=== PATIENT | female | born 1995 | race Caucasian/White ===

== ENCOUNTER 2022-07-17 12:26 | Emergency (ER) | payer BC ==
[2022-07-17 12:30] VITALS: TEMP 97.4
[2022-07-17] MEDS ORDERED: ONDANSETRON 4 MG/2 ML VIAL IVP STA (12:47)
[2022-07-17] MEDS ORDERED: KETOROLAC 15 MG/ML 1 ML VIAL IVP STA (12:47)
[2022-07-17] MEDS ORDERED: SODIUM CHLORIDE 0.9% 1,000 ML IV STA (12:47)
[2022-07-17] MEDS ORDERED: PANTOPRAZOLE 40 MG/10 ML VIAL IVP STA (12:47)
--- NOTE | 2022-07-17 12:53 | ED ---
General Adult HPI - General Chief complaint: Abdominal Pain Stated complaint: NVD Time Seen by Provider: 07/17/22 12:31 Source: patient, RN notes reviewed, old records reviewed Mode of arrival: ambulatory Limitations: no limitations - History of Present Illness Initial comments: Patient is a 27-year-old female who presents with Department complaining of abdominal pain. She is also had nausea that is associated with nonbilious nonbloody emesis 3. Also has had multiple episodes of diarrhea that has been nonbloody. Symptoms all started yesterday. Patient is emotional. She states she does not know what is causing it. States she feels miserable and that her stomach feels really bad after she throws up. States she has not thrown up in quite some time. Denies any abdominal discomfort otherwise. Denies chest pain or shortness of breath. Denies fevers or chills. Denies any sick contacts. States she is currently on her period but denies any vaginal discharge otherwise. Denies any urinary complaints. Does have some crampy suprapubic ab dominal pain as well as upper epigastric pain that she describes is more achy. Patient does have a history of PCO last and is on metformin. States this symptoms sometimes are caused by medications but this just seems to be more pronounced this time which is why she presents emergency department for evaluation. Denies any known sick contacts. Presents for further evaluation at this time. - Related Data Home Medications Medication Instructions Recorded Confirmed Ethinyl Estradiol/Drospirenone 1 tab PO HS 07/17/22 07/17/22 [Abena 28 Tablet] Metformin Er 750mg 750 mg PO TID 07/17/22 07/17/22 Phentermine HCl [Adipex-P] 37.5 mg PO DAILY 07/17/22 07/17/22 Previous Rx's Medication Instructions Recorded Dicyclomine [Bentyl] 10 mg PO TID PRN 7 Days #21 capsule 07/17/22 Ondansetron Odt [Zofran Odt] 4 mg PO Q8HR PRN 2 Days #6 tab 07/17/22 Allergies Allergy/AdvReac Type Severity Reaction Status Date / Time No Known Allergies Allergy Verified 07/17/22 16:37 Review of Systems ROS Statement: Those systems with pertinent positive or pertinent negative responses have been documented in the HPI. Review of Systems: CONST: Denies fever EYES: Denies blurry vision ENT: Denies nasal congestion C/V: Denies Chest pain RESP: Denies shortness of breath GI: Endorses abdominal pain : Denies dysuria SKIN: Denies rash. MSK: Denies joint pain. NEURO: Denies headache ROS Other: All systems not noted in ROS Statement are negative. Past Medical History Additional Past Medical History / Comment(s): PCOS History of Any Multi-Drug Resistant Organisms: None Reported Past Surgical History: Tonsillectomy Past Psychological History: Anxiety Smoking Status: Never smoker Past Alcohol Use History: None Reported Past Drug Use History: Marijuana General Exam - General Exam Comments Initial Comments: General: Appears in no acute distress. Patient is upset, however overall does not appear in much acute distress otherwise. HEAD: Normal with no signs of head trauma. EYES: EOMI ENT: Hearing grossly intact, normal oropharynx. RESPIRATORY: Clear breath sounds bilaterally. No wheezes, rales, or rhonchi. C/V: Tachycardic with a regular rhythm. S1 and S2 auscultated, no edema, peripheral pulses 2+ and intact throughout ABD: Soft, nondistended. Minimally tender to palpation in the epigastric region. No guarding. No rebound tenderness. No peritoneal signs. No CVA tenderness to percussion. Overall exam is unremarkable. EXT: Normal range of motion, no obvious deformity SKIN: No rashes or lesions observed on exposed skin. NEURO: Alert and oriented 4. Limitations: no limitations Course Vital Signs 07/17/22 07/17/22 07/17/22 12:27 14:21 15:50 Temperature 97.4 F L Pulse Rate 111 H 95 90 Respiratory 20 16 20 Rate Blood Pressure 137/95 127/77 121/79 O2 Sat by Pulse 98 97 99 Oximetry Medical Decision Making - Medical Decision Making Was pt. sent in by a medical professional or institution (, PA, [employer], urgent care, hospital, or intermediate...) When possible be specific @ -No Did you speak to anyone other than the patient for history (EMS, parent, family, police, friend...)? What history was obtained from this source @ -No Did you review nursing and triage notes (agree or disagree)? Why? @ -I reviewed and agree with nursing and triage notes Were old charts reviewed (outside hosp., previous admission, EMS record, old EKG, old radiological studies, urgent care reports/EKG's, intermediate records)? Report findings @ -No old charts were reviewed Differential Diagnosis (chest pain, altered mental status, abdominal pain women, abdominal pain men, vaginal bleeding, weakness, fever, dyspnea, syncope, headache, dizziness, GI bleed, back pain, seizure, CVA, palpatations, mental health, musculoskeletal)? @ -Differential Abdominal Pain Women: Appendicitis, Cholecystitis, diverticulosis, ischemic bowel, pancreatitis, hepatitis, UTI, gastroenteritis, AAA, incarcerated hernia, bowel obstruction, constipation, inflammatory bowel, hepatitis, peptic ulcer disease, splenic infarction, perforated viscus, vulvitis, ovarian torsion, PID, kidney stone, placenta abruption, this is not meant to be an all-inclusive list EKG interpreted by me (3pts min.). @ -None done X-rays interpreted by me (1pt min.). @ -KUB x-ray reveals no obvious intra-abdominal process. CT interpreted by me (1pt min.). @ -CT abdomen and pelvis revealed mild splenomegaly, however no other obvious acute intra-abdominal process to explain her symptoms. U/S interpreted by me (1pt. min.). @ -Gallbladder ultrasound revealed no evidence of acute cholecystitis. Sonographic Nieves sign positive sonographic nieves sign and radiology recommend a HIDA scan. What testing was considered but not performed or refused? (CT, X-rays, U/S, labs)? Why? @ -None What meds were considered but not given or refused? Why? @ -None Did you discuss the management of the patient with other professionals (professionals i.e. , PA, [employer], lab, RT, psych nurse, dialysis social worker, judicial administrative assistant, teacher, chief lifestyle officer, case briefer)? Give summary @ -No Was smoking cessation discussed for >3mins.? @ -No Was critical care preformed (if so, how long)? @ -No Were there social determinants of health that impacted care today? How? (Homelessness, low income, unemployed, alcoholism, drug addiction, transportation, low edu. Level, literacy, decrease access to med. care, long term, rehab)? @ -No Was there de-escalation of care discussed even if they declined (Discuss DNR or withdrawal of care, Hospice)? DNR status @ -No What co-morbidities impacted this encounter? (DM, HTN, Smoking, COPD, CAD, C ancer, CVA, ARF, Chemo, Hep., AIDS, mental health diagnosis, sleep apnea, morbid obesity)? @ -PCOS Was patient admitted / discharged? Hospital course, mention meds given and route, prescriptions, significant lab abnormalities, going to OR and other pertinent info. @ -Based on the patient's presentation and physical exam, she presents with a bdominal pain, nausea, vomiting, diarrhea. Abdominal exam is relatively unremarkable. Vital signs are within acceptable limits. We will obtain abdominal laboratory studies as well as ultrasound of the gallbladder and KUB x- ray. We will symptomatically treat the patient with IV Toradol, Zofran, P rotonix, 1 L fluid bolus. She was in agreement this plan. Patient's laboratory studies were delayed but were remarkable for mild leukocytosis of 12. Remainder the labs are unremarkable including lactic acid of 1.4. Patient's urine is bloody the patient is currently on her menstrual cy mariia. She is not . Remainder the workup unremarkable. Gallbladder ultrasound and x-ray were unremarkable, other than recommending HIDA scan done non-emergently. I did discuss results with the patient. She is feeling somewhat improved but I did offer CT imaging which he accepted. CT abdomen and pelvis revealed no obvious acute intra-abdominal process to explain her current symptoms. We did discuss her workup. She is feeling improved at this time. Unknown etiology for her symptoms. She'll be discharged home with strict follow-up instructions and return precautions. She was in agreement this plan. I will provide the patient with a prescription for ODT Victor Hugo Jara. I instructed the patient to follow up with their PCP in the next 1-3 days. I provided contact information for follow up with gastroenterology. I explained that the patient should return to the emergency department if they experience any worsening symptoms. Strict return precautions were discussed with the patient. The patient expressed understanding of these instructions. I answered all questions that the patient had. The patient was discharged home in good condition with their prescriptions and follow up information. Undiagnosed new problem with uncertain prognosis? @ -No Drug Therapy requiring intensive monitoring for toxicity (Heparin, Nitro, Insulin, Cardizem)? @ -No Were any procedures done? @ -No Diagnosis/symptom? @ -Abdominal pain of unknown etiology, nausea and vomiting, diarrhea Acute, or Chronic, or Acute on Chronic? @ -Acute Uncomplicated (without systemic symptoms) or Complicated (systemic symptoms)? @ -Uncomplicated Side effects of treatment? @ -none Exacerbation, Progression, or Severe Exacerbation] @ -no Poses a threat to life or bodily function? @ -no - Lab Data Result diagrams: 07/17/22 13:05 07/17/22 13:05 Lab Results 07/17/22 07/17/22 07/17/22 Range/Units 13:05 13:05 13:05 WBC 12.0 H (3.8-10.6) k/uL RBC 5.10 (3.80-5.40) m/uL Hgb 15.0 (11.4-16.0) gm/dL Hct 43.0 (34.0-46.0) % MCV 84.4 (80.0-100.0) fL MCH 29.5 (25.0-35.0) pg MCHC 34.9 (31.0-37.0) g/dL RDW 12.6 (11.5-15.5) % Plt Count 273 (150-450) k/uL MPV 7.9 Neutrophils % 70 % Lymphocytes % 21 % Monocytes % 4 % Eosinophils % 4 % Basophils % 0 % Neutrophils # 8.3 H (1.3-7.7) k/uL Lymphocytes # 2.5 (1.0-4.8) k/uL Monocytes # 0.4 (0-1.0) k/uL Eosinophils # 0.5 (0-0.7) k/uL Basophils # 0.0 (0-0.2) k/uL PT 10.0 (9.0-12.0) sec INR 0.9 (<1.2) APTT 22.7 (22.0-30.0) sec Sodium 135 L (137-145) mmol/L Potassium 4.1 (3.5-5.1) mmol/L Chloride 107 (98-107) mmol/L Carbon Dioxide 18 L (22-30) mmol/L Anion Gap 10 mmol/L BUN 13 (7-17) mg/dL Creatinine 0.55 (0.52-1.04) mg/dL Est GFR (CKD-EPI)AfAm >90 (>60 ml/min/1.73 sqM) Est GFR (CKD-EPI)NonAf >90 (>60 ml/min/1.73 sqM) Glucose 95 (74-99) mg/dL Plasma Lactic Acid Pedro (0.7-2.0) mmol/L Calcium 8.9 (8.4-10.2) mg/dL Total Bilirubin 0.6 (0.2-1.3) mg/dL AST 32 (14-36) U/L ALT 43 H (4-34) U/L Alkaline Phosphatase 60 (38-126) U/L Total Protein 7.3 (6.3-8.2) g/dL Albumin 4.1 (3.5-5.0) g/dL Amylase 53 (30-110) U/L Lipase 118 (23-300) U/L HCG, Qual Not Detected Urine Appearance (Clear) Urine RBC (0-5) /hpf Urine WBC (0-5) /hpf Ur Squamous Epith Cells (0-4) /hpf Urine Mucus (None) /hpf Influenza Type A (PCR) (Not Detectd) Influenza Type B (PCR) (Not Detectd) RSV (PCR) (Not Detectd) SARS-CoV-2 (PCR) (Not Detectd) 07/17/22 07/17/22 07/17/22 Range/Units 13:05 13:08 13:08 WBC (3.8-10.6) k/uL RBC (3.80-5.40) m/uL Hgb (11.4-16.0) gm/dL Hct (34.0-46.0) % MCV (80.0-100.0) fL MCH (25.0-35.0) pg MCHC (31.0-37.0) g/dL RDW (11.5-15.5) % Plt Count (150-450) k/uL MPV Neutrophils % % Lymphocytes % % Monocytes % % Eosinophils % % Basophils % % Neutrophils # (1.3-7.7) k/uL Lymphocytes # (1.0-4.8) k/uL Monocytes # (0-1.0) k/uL Eosinophils # (0-0.7) k/uL Basophils # (0-0.2) k/uL PT (9.0-12.0) sec INR (<1.2) APTT (22.0-30.0) sec Sodium (137-145) mmol/L Potassium (3.5-5.1) mmol/L Chloride (98-107) mmol/L Carbon Dioxide (22-30) mmol/L Anion Gap mmol/L BUN (7-17) mg/dL Creatinine (0.52-1.04) mg/dL Est GFR (CKD-EPI)AfAm (>60 ml/min/1.73 sqM) Est GFR (CKD-EPI)NonAf (>60 ml/min/1.73 sqM) Glucose (74-99) mg/dL Plasma Lactic Acid Pedro 1.4 (0.7-2.0) mmol/L Calcium (8.4-10.2) mg/dL Total Bilirubin (0.2-1.3) mg/dL AST (14-36) U/L ALT (4-34) U/L Alkaline Phosphatase (38-126) U/L Total Protein (6.3-8.2) g/dL Albumin (3.5-5.0) g/dL Amylase (30-110) U/L Lipase (23-300) U/L HCG, Qual Urine Appearance Bloody H (Clear) Urine RBC >182 H (0-5) /hpf Urine WBC 79 H (0-5) /hpf Ur Squamous Epith Cells 9 H (0-4) /hpf Urine Mucus Many H (None) /hpf Influenza Type A (PCR) Not Detected (Not Detectd) Influenza Type B (PCR) Not Detected (Not Detectd) RSV (PCR) Not Detected (Not Detectd) SARS-CoV-2 (PCR) Not Detected (Not Detectd) Disposition Clinical Impression: Abdominal pain of unknown cause, Nausea & vomiting, Diarrhea Disposition: HOME SELF-CARE Condition: Good Instructions (If sedation given, give patient instructions): Abdominal Pain (ED) Prescriptions: Dicyclomine [Bentyl] 10 mg PO TID PRN 7 Days #21 capsule PRN Reason: Pain Ondansetron Odt [Zofran Odt] 4 mg PO Q8HR PRN 2 Days #6 tab PRN Reason: Nausea Is patient prescribed a controlled substance at d/c from ED?: No Referrals: None,Stated [Primary Care Provider] - 1-2 days Dana Gordon MD [STAFF PHYSICIAN] - 1-2 days Time of Disposition: 16:19
[2022-07-17 13:32] LABS: ALT 43 U/L (4-34); AST 32 U/L (14-36); African American GFR (CKD) >90 (>60 ml/min/1.73 sqM); Albumin 4.1 g/dL (3.5-5.0); Alkaline Phosphatase 60 U/L (38-126); Amylase 53 U/L (30-110); Anion Gap 10 mmol/L; Blood Urea Nitrogen 13 mg/dL (7-17); Calcium 8.9 mg/dL (8.4-10.2); Carbon Dioxide 18 mmol/L (22-30); Chloride 107 mmol/L (98-107); Glucose 95 mg/dL (74-99); Lipase 118 U/L (23-300); Non-African American GFR(CKD) >90 (>60 ml/min/1.73 sqM); Potassium 4.1 mmol/L (3.5-5.1); Sodium 135 mmol/L (137-145); Total Bilirubin 0.6 mg/dL (0.2-1.3); Total Protein 7.3 g/dL (6.3-8.2)
[2022-07-17 13:33] LABS: INR 0.9 (<1.2); Partial Thromboplastin Time 22.7 sec (22.0-30.0)
[2022-07-17 13:35] LABS: HCG,Qualitative Serum Not Detected
[2022-07-17 13:37] LABS: Basophils % (A) 0 %; Eosinophils # (A) 0.5 k/uL (0-0.7); Eosinophils % (A) 4 %; Lymphocytes # (A) 2.5 k/uL (1.0-4.8); Lymphocytes % (A) 21 %; MCH 29.5 pg (25.0-35.0); MCHC 34.9 g/dL (31.0-37.0); MCV 84.4 fL (80.0-100.0); Mean Platelet Volume 7.9; Monocytes # (A) 0.4 k/uL (0-1.0); Monocytes % (A) 4 %; Neutrophils # (A) 8.3 k/uL (1.3-7.7); Neutrophils % (A) 70 %; Platelet Count 273 k/uL (150-450); RDW 12.6 % (11.5-15.5)
--- NOTE | 2022-07-17 14:03 | XR ---
EXAMINATION TYPE: XR [facility] DATE OF EXAM: 07/17/2022 COMPARISON: NONE HISTORY: Abdominal pain TECHNIQUE: Upright view of the abdomen was obtained with 2 radiographs. FINDINGS: Small bowel demonstrates no evidence for dilatation or air fluid levels. Gas and fecal material is seen in non-distended colon. No convincing evidence for pneumoperitoneum. No unusual calcifications. The lung bases are clear. The osseous structures are intact. IMPRESSION: Overall nonobstructive bowel gas pattern.
[2022-07-17 14:39] LABS: Mucus,Urine Many /hpf; RBC,Urine >182 /hpf (0-5); Squamous Epithelial Cell,Urine 9 /hpf (0-4); WBC,Urine 79 /hpf (0-5)
[2022-07-17 14:40] LABS: Appearance,Urine Bloody (Clear)
--- NOTE | 2022-07-17 15:14 | US ---
EXAMINATION TYPE: US gallbladder DATE OF EXAM: 07/17/2022 COMPARISON: NONE CLINICAL INDICATION: Female, 27 years old with history of n/v, epigastric pain; TECHNIQUE: Multiple sonographic images of the right upper quadrant are obtained. FINDINGS: EXAM MEASUREMENTS: Liver Length: 15.2 Gallbladder Wall: 0.2m CBD: 0.4m Right Kidney: 11.4 x 4.3 x 3.9 GOVERNMENT EMPLOYEE NOTES: Pancreas: Obscured by bowel gas Liver: difficult to penetrate Gallbladder: No stones seen Evidence for sonographic Neives's sign: Yes CBD: wnl Right Kidney: No hydronephrosis or masses seen The pancreas is nonvisualized due to overlying bowel gas. The liver is diffusely hyperechoic and diff icult to penetrate without gross evidence of focal lesion. No cholelithiasis, wall thickening, perich olecystic fluid identified. Per corncob pipe supervisor, positive sonographic Nieves sign. Common bile duct withi n normal limits. The right kidney unremarkable without evidence of hydronephrosis, nephrolithiasis, o r contour deforming solid mass. IMPRESSION: 1. No ultrasound evidence for acute cholecystitis however reported positive sonographic Nieves's sig n. Clinical correlation is recommended. If there is continued clinical concern, consider nuclear medi cine HIDA scan. 2. Hepatic steatosis.
[2022-07-17] MEDS ORDERED: DICYCLOMINE 20 MG TAB PO STA (15:23)
[2022-07-17 15:51] VITALS: BP 121/79; PULSE 90; RESP 20
--- NOTE | 2022-07-17 15:55 | CT ---
EXAMINATION TYPE: CT abdomen pelvis w con CT DLP: 2990.4 mGycm, Automated exposure control for dose reduction was used. DATE OF EXAM: 07/17/2022 3:46 PM COMPARISON: KUB radiograph 07/17/2022 gallbladder ultrasound 07/17/2022. CLINICAL INDICATION:Female, 27 years old with history of abdominal pain, crampy, n/v/d; Stomach pain, vomiting TECHNIQUE: Standard CT of the abdomen and pelvis following the administration of 100 cc of Isovue 3 00 IV contrast material. Coronal and sagittal reformats were performed. FINDINGS: LOWER CHEST: Unremarkable ABDOMEN LIVER: Diffusely hypoattenuating parenchyma. GALLBLADDER AND BILE DUCTS: Unremarkable. PANCREAS: Unremarkable. SPLEEN: Mildly enlarged measuring 14.6 cm in greatest dimension. ADRENAL GLANDS: Unremarkable. KIDNEYS AND URETERS: No evidence of hydronephrosis or renal calculus. The kidneys enhance symmetrical ly without suspicious focal lesion. Contrast is demonstrated within both collecting systems on the de layed phase. PELVIS BLADDER: Incompletely distended but grossly unremarkable. REPRODUCTIVE: Unremarkable. ABDOMEN & PELVIS STOMACH AND BOWEL: Stomach and duodenum are unremarkable. No focal wall thickening or surrounding inf lammatory changes. The appendix is within normal limits. No evidence of bowel obstruction. PERITONEUM: No evidence of pneumoperitoneum or free fluid. VASCULATURE: No evidence of aortic aneurysm. MUSCULOSKELETAL: No acute osseous abnormalities LYMPH NODES: No gross evidence for lymphadenopathy. SOFT TISSUE/ABDOMINAL WALL: Small fat filled umbilical hernia. IMPRESSION: 1. No acute abdominal/pelvic process. 2. Mild splenomegaly.
== END 2022-07-17 16:39 | disposition home or self-care (01) ==
LOC: EC 12:26
DX: K76.0 Fatty (change of) liver, not elsewhere classified (principal); F41.9 Anxiety disorder, unspecified; F12.90 Cannabis use, unspecified, uncomplicated; Z79.84 Long term (current) use of oral hypoglycemic drugs; Z20.822 Contact with and (suspected) exposure to COVID-19
CPT/HCPCS: 36415; 80053; 82150; 83605; 83690; 85025; 85610; 85730; 81001; 84703; 87086; 87636; 74018; 76705; 74177; 99284; 96374; 96375 ×2; 96361; J2405; J1885; C9113; Q9967

== ENCOUNTER 2022-07-23 11:50 | Emergency (ER) | payer BC ==
[2022-07-23] MEDS ORDERED: ERYTHROMYCIN 5 MG/GM OPHTH OINT 1 GM TUBE LEFT EYE STA (12:07)
[2022-07-23] MEDS ORDERED: ARTIFICIAL TEARS-HYPROMELLOSE DROPS 15 ML BTL LEFT EYE PRN (12:08)
--- NOTE | 2022-07-23 12:13 | ED ---
General Adult HPI - General Chief complaint: Neuro Symptoms/Deficit Stated complaint: L side face numbness Time Seen by Provider: 07/23/22 11:57 Source: patient, family Mode of arrival: ambulatory Limitations: no limitations - History of Present Illness Initial comments: Dictation was produced using [employer] dictation software. please excuse any gram matical, word or spelling errors. Chief Complaint: 27-year-old female presents with left facial weakness History of Present Illness: Patient 27-year-old female she has past medical hist ory of polycystic ovarian syndrome. Patient presents with 2 days of left-sided facial weakness patient was sent starting yesterday. Today she woke up and felt worse. Patient states that when she smiles and says she cannot move her left lower face. She also notices upper face is also started become weak. Patient was seen here in emergency department 6 days ago for abdominal pain. Patient denies any headache. Denies any numbness and paresthesias to extremities. The ROS documented in this emergency department record has been reviewed and confirmed by me. Those systems with pertinent positive or negative responses have been documented in the HPI. All other systems are other negative and/or noncontributory. - Related Data Home Medications Medication Instructions Recorded Confirmed Ethinyl Estradiol/Drospirenone 1 tab PO HS 07/17/22 07/23/22 [Abena 28 Tablet] Metformin Er 750mg 750 mg PO TID 07/17/22 07/23/22 Previous Rx's Medication Instructions Recorded Artificial Tears-Hypromellose 1 drops LEFT EYE TID #10 ml 07/23/22 [Artificial Tear Drops] Erythromycin Ophth Oint [Romycin 1 applic LEFT EYE DAILY #1 gm 07/23/22 Ophth Oint] predniSONE [Deltasone] 60 mg PO DAILY 7 Days #24 tab 07/23/22 valACYclovir HCL [Valtrex] 1,000 mg PO DAILY 7 Days #7 tablet 07/23/22 Allergies Allergy/AdvReac Type Severity Reaction Status Date / Time No Known Allergies Allergy Verified 07/23/22 12:52 Review of Systems ROS Statement: Those systems with pertinent positive or pertinent negative responses have been documented in the HPI. ROS Other: All systems not noted in ROS Statement are negative. Past Medical History Additional Past Medical History / Comment(s): PCOS History of Any Multi-Drug Resistant Organisms: None Reported Past Surgical History: Tonsillectomy Past Psychological History: Anxiety Smoking Status: Never smoker Past Alcohol Use History: None Reported Past Drug Use History: Marijuana General Exam - General Exam Comments Initial Comments: PHYSICAL EXAM: General Impression: Alert and oriented x3, not in acute distress HEENT: Normocephalic atraumatic, extra-ocular movements intact, pupils equal and reactive to light bilaterally, mucous membranes moist. Cardiovascular: Heart regular rate and rhythm Chest: Able to complete full sentences, no retractions, no tachypnea Abdomen: abdomen soft, non-tender, non-distended, no organomegaly Musculoskeletal: Pulses present and equal in all extremities, no peripheral edema Motor: no focal deficits noted Neurological: Facial nerve palsy. No extremity weakness or sensory deficit. Weakness to the left lower face. Weakness to left periorbital muscles Skin: Intact with no visualized rashes Psych: Normal affect and mood Limitations: no limitations Course Vital Signs 07/23/22 11:51 Temperature 98.1 F Pulse Rate 108 H Respiratory 20 Rate Blood Pressure 144/89 O2 Sat by Pulse 98 Oximetry Medical Decision Making - Medical Decision Making Was pt. sent in by a medical professional or institution (, PA, RESEARCH ASSISTANT, urgent care, hospital, or correction...) When possible be specific @ -No Did you speak to anyone other than the patient for history (EMS, parent, family, police, friend...)? What history was obtained from this source @ -No Did you review nursing and triage notes (agree or disagree)? Why? @ -I reviewed and agree with nursing and triage notes Were old charts reviewed (outside hosp., previous admission, EMS record, old EKG, old radiological studies, urgent care reports/EKG's, correction records)? Report findings @ -No old charts were reviewed Differential Diagnosis (chest pain, altered mental status, abdominal pain women, abdominal pain men, vaginal bleeding, musculoskeletal, weakness, fever, dyspnea, syncope, headache, dizziness, GI bleed, back pain, seizure, CVA, palpatations, mental health)? @ - Differential CVA: Ischemic stroke, hemorrhagic stroke, brain tumor, atypical migraine, Wernicke's encephalopathy, seizure, multiple sclerosis, meningitis, encephalitis, hypoglycemia, Guillain-Matt, electrolytes disturbance, myasthenia gravis.... This is not meant to be an all-inclusive list EKG interpreted by me (3pts min.). @ -None done X-rays interpreted by me (1pt min.). @ -None done CT interpreted by me (1pt min.). @ -None done U/S interpreted by me (1pt. min.). @ -None done What testing was considered but not performed or refused? (CT, X-rays, U/S, labs)? Why? @ -None What meds were considered but not given or refused? Why? @ -None Did you discuss the management of the patient with other professionals (professionals i.e. Dr., PA, RESEARCH ASSISTANT, lab, RT, psych nurse, sexual assault social worker, cable former, teacher, inshore undersea warfare officer, case planner)? Give summary @ -No Was smoking cessation discussed for >3mins.? @ -No Was critical care preformed (if so, how long)? @ -No Were there social determinants of health that impacted care today? How? (Homelessness, low income, unemployed, alcoholism, drug addiction, transportation, low edu. Level, literacy, decrease access to med. care, long-term, rehab)? @ -No Was there de-escalation of care discussed even if they declined (Discuss DNR or withdrawal of care, Hospice)? DNR status @ -No What co-morbidities impacted this encounter? (DM, HTN, Smoking, COPD, CAD, Cancer, CVA, ARF, Chemo, Hep., AIDS, mental health diagnosis, sleep apnea, morbid obesity)? @ -None Was patient admitted / discharged? Hospital course, mention meds given and route, prescriptions, significant lab abnormalities, going to OR and other pertinent info. @ -27-year-old female with clinical presentation consistent with Jay palsy 2 days. No obvious cause. Patient counseled on eye care. Given prescription for antivirals and steroids. Patient discharged with instruction to follow up with primary care doctor. Undiagnosed new problem with uncertain prognosis? @ -No Drug Therapy requiring intensive monitoring for toxicity (Heparin, Nitro, Insulin, Cardizem)? @ -No Were any procedures done? @ -No Diagnosis/symptom? Acute, or Chronic, or Acute on Chronic? Uncomplicated (without systemic symptoms) or Complicated (systemic symptoms)? @ -Appearing. Unconjugated Jay palsy Side effects of treatment? @ -No Exacerbation, Progression, or Severe Exacerbation? @ -No Poses a threat to life or bodily function? How? (Chest pain, [place], [place], pneumonia, PE, COPD, DKA, ARF, appy, cholecystitis, CVA, Diverticulitis, Homicidal, Suicidal, threat to staff... and all critical care pts) @ -No - Lab Data Lab Results 07/23/22 Range/Units 12:25 Urine HCG, Qual Not Detected (Not Detectd) Disposition Clinical Impression: Jay palsy Disposition: HOME SELF-CARE Condition: Good Instructions (If sedation given, give patient instructions): Jay Palsy (ED) Additional Instructions: Artificial tears every hour while patient is awake Ophthalmic ointment at night Eye should be taped shut at night Protective glasses or goggles Prescriptions: Artificial Tears-Hypromellose [Artificial Tear Drops] 1 drops LEFT EYE TID #10 ml predniSONE [Deltasone] 60 mg PO DAILY 7 Days #24 tab Erythromycin Ophth Oint [Romycin Ophth Oint] 1 applic LEFT EYE DAILY #1 gm valACYclovir HCL [Valtrex] 1,000 mg PO DAILY 7 Days #7 tablet Is patient prescribed a controlled substance at d/c from ED?: No Referrals: Faby Pimentel DO [Primary Care Provider] - 1-2 days Time of Disposition: 13:09
[2022-07-23 13:41] VITALS: BP 142/72; PULSE 98; RESP 17; TEMP 97.9
== END 2022-07-23 13:41 | disposition home or self-care (01) ==
LOC: EC 11:50
DX: G51.0 Bell's palsy (principal); F41.9 Anxiety disorder, unspecified; F12.90 Cannabis use, unspecified, uncomplicated
CPT/HCPCS: 81025; 99284

== ENCOUNTER 2023-01-06 11:53 | Emergency (ER) | payer BC ==
--- NOTE | 2023-01-06 13:11 | ED ---
Female Urogenital HPI - General Chief complaint: Vaginal Bleeding Stated complaint: Vaginal Bleeding Time Seen by Provider: 01/06/23 12:15 Source: patient Mode of arrival: ambulatory Limitations: no limitations - History of Present Illness Initial comments: 27-year-old female presents to the emergency department with heavy vaginal bleeding. States that she has a history of PCOS. She is suppose to be on control. She stopped taking the control this month as she does not like the way it makes her feel. States that she has more heavy, painful menstrual cycles when on it. Patient is day 2 of her menstrual cycle and has had significant heavy bleeding. Reports to passing a very large clot earlier this morning. She has been going through 2 pads an hour. She called her TECHNICAL RECRUITER, Dr. Falcon who recommended that she come to the emergency room. She denies any lightheadedness or nausea. No fevers. No concern for sexual transmitted infec tions. She denies . She has never been . No urinary or bowel complaints. No other alleviating, precipitating or modifying factors - Related Data Home Medications Medication Instructions Recorded Confirmed No Known Home Medications 01/06/23 01/06/23 Allergies Allergy/AdvReac Type Severity Reaction Status Date / Time No Known Allergies Allergy Verified 01/06/23 13:28 Review of Systems ROS Statement: Those systems with pertinent positive or pertinent negative responses have been documented in the HPI. ROS Other: All systems not noted in ROS Statement are negative. Past Medical History Additional Past Medical History / Comment(s): PCOS History of Any Multi-Drug Resistant Organisms: None Reported Past Surgical History: Tonsillectomy Past Psychological History: Anxiety Smoking Status: Never smoker Past Alcohol Use History: Rare Past Drug Use History: Marijuana General Exam Limitations: no limitations General appearance: alert, in no apparent distress Head exam: Present: atraumatic, normocephalic, normal inspection Eye exam: Present: normal appearance, PERRL, EOMI. Absent: scleral icterus, conjunctival injection, periorbital swelling ENT exam: Present: normal exam, mucous membranes moist Neck exam: Present: normal inspection. Absent: tenderness, meningismus, lymphad enopathy Respiratory exam: Present: normal lung sounds bilaterally. Absent: respiratory distress, wheezes, rales, rhonchi, stridor Cardiovascular Exam: Present: regular rate, normal rhythm, normal heart sounds. Absent: systolic murmur, diastolic murmur, rubs, gallop, clicks GI/Abdominal exam: Present: soft, normal bowel sounds. Absent: distended, tenderness, guarding, rebound, rigid Extremities exam: Present: normal inspection, full ROM, normal capillary refill. Absent: tenderness, pedal edema, joint swelling, calf tenderness Back exam: Present: normal inspection Neurological exam: Present: alert, oriented X3, CN II-XII intact Psychiatric exam: Present: normal affect, normal mood Skin exam: Present: warm, dry, intact, normal color. Absent: rash Course Vital Signs 01/06/23 01/06/23 12:10 16:29 Temperature 98.2 F 98.9 F Pulse Rate 77 70 Respiratory 18 16 Rate Blood Pressure 147/96 145/73 O2 Sat by Pulse 97 98 Oximetry Medical Decision Making - Medical Decision Making Was pt. sent in by a medical professional or institution (NATASHA Marcano, SPORTS PHYSICAL THERAPIST, urgent care, hospital, or jail...) When possible be specific @ -Patient was sent in by her OB Did you speak to anyone other than the patient for history (EMS, parent, family, police, friend...)? What history was obtained from this source @ -No Did you review nursing and triage notes (agree or disagree)? Why? @ -I reviewed and agree with nursing and triage notes Were old charts reviewed (outside hosp., previous admission, EMS record, old EKG, old radiological studies, urgent care reports/EKG's, jail records)? Report findings @ -No old charts were reviewed Differential Diagnosis (chest pain, altered mental status, abdominal pain women, abdominal pain men, vaginal bleeding, weakness, fever, dyspnea, syncope, headache, dizziness, GI bleed, back pain, seizure, CVA, palpatations, mental health, musculoskeletal)? @ -Differential Vaginal Bleeding: Spontaneous , threatened , molar , ectopic , bloody show, incompetent cervix, abruptioplacenta, placenta previa, uterine rupt ure, dysfunctional uterine bleeding, hemorrhage, uterine fibroids, this is not meant to be an all-inclusive list. EKG interpreted by me (3pts min.). @ -Not done X-rays interpreted by me (1pt min.). @ -None done CT interpreted by me (1pt min.). @ -None done U/S interpreted by me (1pt. min.). @ -Yes and demonstrates some vaginal bleeding What testing was considered but not performed or refused? (CT, X-rays, U/S, labs)? Why? @ -None What meds were considered but not given or refused? Why? @ -None Did you discuss the management of the patient with other professionals (professionals i.e. Dr., PA, SPORTS PHYSICAL THERAPIST, lab, RT, psych nurse, forensic social worker, antenna rigger, teacher, vice squad police officer, home health care case manager)? Give summary @ -No Was smoking cessation discussed for >3mins.? @ -No Was critical care preformed (if so, how long)? @ -No Were there social determinants of health that impacted care today? How? (Homelessness, low income, unemployed, alcoholism, drug addiction, transportation, low edu. Level, literacy, decrease access to med. care, care home, r ehab)? @ -No Was there de-escalation of care discussed even if they declined (Discuss DNR or withdrawal of care, Hospice)? DNR status @ -No What co-morbidities impacted this encounter? (DM, HTN, Smoking, COPD, CAD, Cancer, CVA, ARF, Chemo, Hep., AIDS, mental health diagnosis, sleep apnea, morbid obesity)? @ -PCOS Was patient admitted / discharged? Hospital course, mention meds given and route, prescriptions, significant lab abnormalities, going to OR and other pertinent info. @ -Discharged. Upon arrival patient placed into room 22. Thorough history and physical exam was performed. IV is established and laboratory studies were conducted. Hemoglobin stable. Blood pressure is stable. Ultrasound is performed. Did speak with the radiologist in regards to the study. Patient is not and therefore area in the lower uterine segment is likely blood products. Results are discussed with the patient. Did recommend that she start her control up again due to the heavy menstrual cycle. I did offer pelvic examination however patient refused. Bleeding is slowed. Patient remained hemodynamic stable. Patient will be discharged home and instructed to follow up for repeat ultrasound through her TECHNICAL RECRUITER office. Return for any new or worsenin g symptoms. Patient was agreeable discharged in stable condition Undiagnosed new problem with uncertain prognosis? @ -No Drug Therapy requiring intensive monitoring for toxicity (Heparin, Nitro, Insulin, Cardizem)? @ -No Were any procedures done? @ -No Diagnosis/symptom? @ -Acute dysmenorrhea, history of PCO S Acute, or Chronic, or Acute on Chronic? @ -Acute Uncomplicated (without systemic symptoms) or Complicated (systemic symptoms)? @ -Complicated Side effects of treatment? @ -No Exacerbation, Progression, or Severe Exacerbation? @ -No Poses a threat to life or bodily function? How? (Chest pain, [place], [place], pneumonia, PE, COPD, DKA, ARF, appy, cholecystitis, CVA, Diverticulitis, Homicidal, Suicidal, threat to staff... and all critical care pts) @ -No - Lab Data Result diagrams: 01/06/23 13:15 01/06/23 13:15 Lab Results 01/06/23 01/06/23 01/06/23 Range/Units 13:15 13:15 13:15 WBC 8.3 (3.8-10.6) k/uL RBC 4.71 (3.80-5.40) m/uL Hgb 13.6 (11.4-16.0) gm/dL Hct 40.8 (34.0-46.0) % MCV 86.7 (80.0-100.0) fL MCH 29.0 (25.0-35.0) pg MCHC 33.4 (31.0-37.0) g/dL RDW 13.2 (11.5-15.5) % Plt Count 243 (150-450) k/uL MPV 7.9 Neutrophils % 56 % Lymphocytes % 35 % Monocytes % 5 % Eosinophils % 2 % Basophils % 0 % Neutrophils # 4.7 (1.3-7.7) k/uL Lymphocytes # 2.9 (1.0-4.8) k/uL Monocytes # 0.4 (0-1.0) k/uL Eosinophils # 0.1 (0-0.7) k/uL Basophils # 0.0 (0-0.2) k/uL Sodium 138 (137-145) mmol/L Potassium 4.3 (3.5-5.1) mmol/L Chloride 105 (98-107) mmol/L Carbon Dioxide 23 (22-30) mmol/L Anion Gap 10 mmol/L BUN 7 (7-17) mg/dL Creatinine 0.56 (0.52-1.04) mg/dL Est GFR (CKD-EPI)AfAm >90 (>60 ml/min/1.73 sqM) Est GFR (CKD-EPI)NonAf >90 (>60 ml/min/1.73 sqM) Glucose 81 (74-99) mg/dL Calcium 9.1 (8.4-10.2) mg/dL Total Bilirubin 0.5 (0.2-1.3) mg/dL AST 36 (14-36) U/L ALT 35 H (4-34) U/L Alkaline Phosphatase 54 (38-126) U/L Total Protein 6.6 (6.3-8.2) g/dL Albumin 3.8 (3.5-5.0) g/dL Urine Color Red Urine Appearance Cloudy H (Clear) Urine pH 7.0 (5.0-8.0) Ur Specific [place] 1.019 (1.001-1.035) Urine Protein 1+ H (Negative) Urine Glucose (UA) Negative (Negative) Urine Ketones Negative (Negative) Urine Blood Large H (Negative) Urine Nitrite Negative (Negative) Urine Bilirubin Negative (Negative) Urine Urobilinogen <2.0 (<2.0) mg/dL Ur Leukocyte Esterase Trace H (Negative) Urine RBC >182 H (0-5) /hpf Urine WBC 90 H (0-5) /hpf Urine WBC Clumps Few H (None) /hpf Ur Squamous Epith Cells 9 H (0-4) /hpf Amorphous Sediment Rare H (None) /hpf Urine Mucus Rare H (None) /hpf Urine HCG, Qual (Not Detectd) 01/06/23 Range/Units 13:15 WBC (3.8-10.6) k/uL RBC (3.80-5.40) m/uL Hgb (11.4-16.0) gm/dL Hct (34.0-46.0) % MCV (80.0-100.0) fL MCH (25.0-35.0) pg MCHC (31.0-37.0) g/dL RDW (11.5-15.5) % Plt Count (150-450) k/uL MPV Neutrophils % % Lymphocytes % % Monocytes % % Eosinophils % % Basophils % % Neutrophils # (1.3-7.7) k/uL Lymphocytes # (1.0-4.8) k/uL Monocytes # (0-1.0) k/uL Eosinophils # (0-0.7) k/uL Basophils # (0-0.2) k/uL Sodium (137-145) mmol/L Potassium (3.5-5.1) mmol/L Chloride (98-107) mmol/L Carbon Dioxide (22-30) mmol/L Anion Gap mmol/L BUN (7-17) mg/dL Creatinine (0.52-1.04) mg/dL Est GFR (CKD-EPI)AfAm (>60 ml/min/1.73 sqM) Est GFR (CKD-EPI)NonAf (>60 ml/min/1.73 sqM) Glucose (74-99) mg/dL Calcium (8.4-10.2) mg/dL Total Bilirubin (0.2-1.3) mg/dL AST (14-36) U/L ALT (4-34) U/L Alkaline Phosphatase (38-126) U/L Total Protein (6.3-8.2) g/dL Albumin (3.5-5.0) g/dL Urine Color Urine Appearance (Clear) Urine pH (5.0-8.0) Ur Specific [place] (1.001-1.035) Urine Protein (Negative) Urine Glucose (UA) (Negative) Urine Ketones (Negative) Urine Blood (Negative) Urine Nitrite (Negative) Urine Bilirubin (Negative) Urine Urobilinogen (<2.0) mg/dL Ur Leukocyte Esterase (Negative) Urine RBC (0-5) /hpf Urine WBC (0-5) /hpf Urine WBC Clumps (None) /hpf Ur Squamous Epith Cells (0-4) /hpf Amorphous Sediment (None) /hpf Urine Mucus (None) /hpf Urine HCG, Qual Not Detected (Not Detectd) Disposition Clinical Impression: Abnormal vaginal bleeding Disposition: HOME SELF-CARE Condition: Stable Instructions (If sedation given, give patient instructions): Dysmenorrhea (ED) Additional Instructions: Please follow-up with your TECHNICAL RECRUITER. I recommend a repeat ultrasound in 4 weeks. Continue taking your control and return for any new or worsening symptoms Is patient prescribed a controlled substance at d/c from ED?: No Referrals: Faby Pimentel DO [Primary Care Provider] - 1-2 days Kellee Falcon DO [REFERRING] - 1-2 days Time of Disposition: 15:55
[2023-01-06 13:20] LABS: Basophils % (A) 0 %; Eosinophils # (A) 0.1 k/uL (0-0.7); Eosinophils % (A) 2 %; HCT 40.8 % (34.0-46.0); HGB 13.6 gm/dL (11.4-16.0); Lymphocytes # (A) 2.9 k/uL (1.0-4.8); Lymphocytes % (A) 35 %; MCHC 33.4 g/dL (31.0-37.0); MCV 86.7 fL (80.0-100.0); Mean Platelet Volume 7.9; Monocytes # (A) 0.4 k/uL (0-1.0); Monocytes % (A) 5 %; Neutrophils # (A) 4.7 k/uL (1.3-7.7); Neutrophils % (A) 56 %; Platelet Count 243 k/uL (150-450); RBC 4.71 m/uL (3.80-5.40); RDW 13.2 % (11.5-15.5); WBC 8.3 k/uL (3.8-10.6)
[2023-01-06 13:30] LABS: ALT 35 U/L (4-34); AST 36 U/L (14-36); African American GFR (CKD) >90 (>60 ml/min/1.73 sqM); Albumin 3.8 g/dL (3.5-5.0); Alkaline Phosphatase 54 U/L (38-126); Anion Gap 10 mmol/L; Blood Urea Nitrogen 7 mg/dL (7-17); Calcium 9.1 mg/dL (8.4-10.2); Carbon Dioxide 23 mmol/L (22-30); Chloride 105 mmol/L (98-107); Glucose 81 mg/dL (74-99); Non-African American GFR(CKD) >90 (>60 ml/min/1.73 sqM); Potassium 4.3 mmol/L (3.5-5.1); Sodium 138 mmol/L (137-145); Total Bilirubin 0.5 mg/dL (0.2-1.3); Total Protein 6.6 g/dL (6.3-8.2)
[2023-01-06 13:45] LABS: Amorphous Sediment,Urine Rare /hpf; Appearance,Urine Cloudy (Clear); Bilirubin,Urine Negative (Negative); Blood,Urine Large (Negative); Color,Urine Red; Glucose,Urine (UA) Negative (Negative); Ketones,Urine Negative (Negative); Leukocyte Esterase,Urine Trace (Negative); Mucus,Urine Rare /hpf; Nitrite,Urine Negative (Negative); Protein,Urine 1+ (Negative); RBC,Urine >182 /hpf (0-5); Specific Gravity,Urine 1.019 (1.001-1.035); Squamous Epithelial Cell,Urine 9 /hpf (0-4); Urobilinogen,Urine <2.0 mg/dL (<2.0); WBC,Urine 90 /hpf (0-5)
--- NOTE | 2023-01-06 14:46 | US ---
EXAMINATION TYPE: US pelvis complete transvag DATE OF EXAM: 01/06/2023 COMPARISON: 07/17/2022 CLINICAL INDICATION: Female, 27 years old with history of pelvic pain, heavy bleeding with clots; On 3rd day of cycle, very heavy bleeding with large clots TECHNIQUE: Transvaginal (TV). Transvaginal sonographic images were medically necessary to better as sess the following anatomy: Endometrium Date of LMP: 01/02/2023 EXAM MEASUREMENTS: Uterus: 7.0x3.4x3.0 cm Endometrial Stripe: 0.4 cm Right Ovary: 3.5x2.4x3.8 cm Left Ovary: 3.4x2.7x3.7 cm 1. Uterus: Anteverted wnl 2. Endometrium: measures wnl, small 0.6cm hypoechoic area near lower uterine segment appears to invo lve both the endometrium and myometrium 3. Right Ovary: string of curtis sign, bulky appearance (pt. diagnosed with PCOS) 4. Left Ovary: string of curtis sign, bulky appearance (pt. diagnosed with PCOS) Spectral, color and waveform doppler imaging shows good arterial and venous flow within the ovaries ; there is no evidence for ovarian torsion. 5. Bilateral Adnexa: Obscured by overlying bowel gas 6. Posterior cul-de-sac: trace fluid IMPRESSION: 1. Small 6 mm hypoechoic area junction of the endometrium and uterine myometrium of the lower uterine segment. This could represent a small cyst or fluid collection. Correlate clinically. Further evalua tion with MRI could be obtained. Recommend additional correlation. 2. Findings are suggestive of polycystic ovary disease bilaterally.
[2023-01-06 16:31] VITALS: BP 145/73; PULSE 70; RESP 16; TEMP 98.9
== END 2023-01-06 16:34 | disposition home or self-care (01) ==
LOC: EC 11:53
DX: N93.9 Abnormal uterine and vaginal bleeding, unspecified (principal); F12.90 Cannabis use, unspecified, uncomplicated; Z86.59 Personal history of other mental and behavioral disorders
CPT/HCPCS: 36415; 76830; 80053; 81001; 81025; 85025; 93975; 99284

== ENCOUNTER 2023-08-25 13:56 | Emergency (ER) | payer BC ==
--- NOTE | 2023-08-25 14:07 | ED ---
Fall HPI - General Chief Complaint: Fall Stated Complaint: Fall-L leg injury Time Seen by Provider: 08/25/23 14:04 Source: patient, RN notes reviewed Mode of arrival: ambulatory Limitations: no limitations - History of Present Illness Initial Comments: This is a 28-year-old female who presents to the emergency department for a fall. Patient states that she tripped and fell on concrete, and has since had pain to the bilateral knees, left femur, and right wrist. Denies hitting her head or any loss of consciousness. She is still able to ambulate. MD Complaint: fall - Related Data Previous Rx's Medication Instructions Recorded Naproxen Sodium 550 mg PO BID PRN #30 tablet 08/25/23 methocarbamoL [Robaxin-750] 1,500 mg PO TID PRN #30 tab 08/25/23 Allergies Allergy/AdvReac Type Severity Reaction Status Date / Time No Known Allergies Allergy Verified 08/25/23 14:14 Review of Systems ROS Statement: Those systems with pertinent positive or pertinent negative responses have been documented in the HPI. ROS Other: All systems not noted in ROS Statement are negative. Past Medical History Additional Past Medical History / Comment(s): PCOS History of Any Multi-Drug Resistant Organisms: None Reported Past Surgical History: Tonsillectomy Past Psychological History: Anxiety Smoking Status: Never smoker Past Alcohol Use History: Rare Past Drug Use History: Marijuana General Exam Limitations: no limitations General appearance: alert, in no apparent distress Head exam: Present: atraumatic, normocephalic, normal inspection Respiratory exam: Present: normal lung sounds bilaterally. Absent: respiratory distress, wheezes, rales, rhonchi, stridor Cardiovascular Exam: Present: regular rate, normal rhythm, normal heart sounds. Absent: systolic murmur, diastolic murmur, rubs, gallop, clicks Extremities exam: Present: other (No deformities, swelling, or ecchymosis to the bilateral knees and femurs. Minor tenderness to the bilateral patella and posterior aspect of the left femur. Minor tenderness to the right wrist. Full range of motion. 2+ radial pulses.) Neurological exam: Present: alert, oriented X3, CN II-XII intact Psychiatric exam: Present: normal affect, normal mood Course Vital Signs 08/25/23 08/25/23 14:12 16:20 Temperature 98.2 F 98.1 F Pulse Rate 95 90 Respiratory 18 18 Rate Blood Pressure 136/87 129/84 O2 Sat by Pulse 99 99 Oximetry Medical Decision Making - Medical Decision Making This is a 28 year old female who presents to the emergency department for leg pain after a fall. Was pt. sent in by a medical professional or institution? @ -No Did you speak to anyone other than the patient for history? @ -No Did you review nursing and triage notes? @ -Yes, and I agree, it is accurate with regards to the patient's symptoms. Were old charts reviewed? @ -No Differential Diagnosis? @ -Differential Musculoskeletal: Muscular strain, contusion, ligament sprain, fracture, arthritis, septic arthritis, bursitis, cellulitis, muscle spasm, nerve compression, DVT, arterial occlusion, herpes zoster, electrolyte abnormality, tumor.... This is not meant to be in all inclusive list EKG interpreted by me (3pts min.)? @ -Not obtained X-rays interpreted by me (1pt min.)? @ -X-ray of the bilateral knees, left femur, and right wrist obtained. My interpretation identifies no acute fractures. CT interpreted by me (1pt min.)? @ -Not obtained U/S interpreted by me (1pt. min.)? @ -Not obtained What testing was considered but not performed? (CT, X-rays, U/S, labs)? Why? @ -None What meds were considered but not given? Why? @ -None Did you discuss the management of the patient with other professionals? @ -No Did you reconcile home meds? @ -No Was smoking cessation discussed for >3mins.? @ -No Was critical care preformed (if so, how long)? @ -No Were there social determinants of health that impacted care today? How? (Homelessness, low income, unemployed, alcoholism, drug addiction, transportation, low edu. Level, literacy, decrease access to med. care, nursing home, rehab)? @ -No Was there de-escalation of care discussed even if they declined? (Discuss DNR or withdrawal of care, Hospice)? @ -No What co-morbidities impacted this encounter? (DM, HTN, Smoking, COPD, CAD, Cancer, CVA, Hep., AIDS, mental health diagnosis, sleep apnea, morbid obesity)? @ -None Was patient admitted / discharged? @ -Discharged. X-ray of the bilateral knees, left femur, and right wrist reveal no acute process. Patient declined the need for any pain medication in the emergency department. Prescription for naproxen and Robaxin provided with dosing instructions reviewed. Also advised ice and elevation. Patient discharged home in stable condition. Undiagnosed new problem with uncertain prognosis? @ -None Drug Therapy requiring intensive monitoring for toxicity (Heparin, Nitro, Insulin, Cardizem)? @ -None Were any procedures done? @ -None Diagnosis/symptom? @ -Fall, knee pain, right wrist sprain Acute, or Chronic, or Acute on Chronic? @ -Acute Uncomplicated (without systemic symptoms) or Complicated (systemic symptoms)? @ -Uncomplicated Side effects of treatment? @ -None Exacerbation, Progression, or Severe Exacerbation] @ -Not applicable Poses a threat to life or bodily function? @ -No Return precautions reviewed in depth, the patient is instructed to return to the emergency department with any new, worsening, or concerning symptoms. Patient verbalized understanding. This case was discussed in detail with the attending ED physician, Dr. Fermin. Presentation, findings, and treatment plan discussed in detail as well. - Radiology Data Radiology results: report reviewed, image reviewed Disposition Clinical Impression: Fall, Knee pain, Wrist pain, right Disposition: HOME SELF-CARE Instructions (If sedation given, give patient instructions): Knee Sprain (ED), Knee Pain (ED) Additional Instructions: Return to the emergency department with any new, worsening, or concerning symptoms. Take the naproxen with Tylenol as needed for pain relief. If you choose to take the naproxen, do not take any other anti-inflammatories such as ibuprofen, take 1 or the other. You can take the Robaxin as 1 to 2 tablets up to 3-4 times daily. Be aware that this may make you drowsy. Apply ice to the painful areas for 15 to 20 minutes every 2-3 hours for the first 2 to 3 days. Follow up with your primary care provider in 1-2 days. Prescriptions: Naproxen Sodium 550 mg PO BID PRN #30 tablet PRN Reason: Pain methocarbamoL [Robaxin-750] 1,500 mg PO TID PRN #30 tab PRN Reason: Pain Is patient prescribed a controlled substance at d/c from ED?: No Referrals: Faby Pimentel DO [Primary Care Provider] - 1-2 days Time of Disposition: 16:11
[2023-08-25 14:58] VITALS: RESP 18
--- NOTE | 2023-08-25 15:27 | XR ---
EXAMINATION TYPE: XR wrist complete RT DATE OF EXAM: 08/25/2023 3:11 PM CLINICAL INDICATION:Female, 28 years old with history of Fall; COMPARISON: None TECHNIQUE: XR wrist complete RT; examined in the Frontal, navicular, lateral, and oblique. FINDINGS: No acute osseous pathology, joint dislocation, or joint effusion. No evidence of any soft tissue swelling is seen. IMPRESSION: No acute osseous pathology.
--- NOTE | 2023-08-25 15:27 | XR ---
EXAMINATION TYPE: XR femur LT, XR knee complete bilateral DATE OF EXAM: 08/25/2023 3:11 PM CLINICAL INDICATION:Female, 28 years old with history of Fall; [facility] COMPARISON: None TECHNIQUE: XR femur LT, XR knee complete bilateral examined in Frontal and lateral projections. Frontal lateral and oblique views of the knees. FINDINGS: No evidence of acute osseous pathology, joint dislocation, or soft tissue swelling. Mild o steophyte formations of the superior acetabulum. Mild joint space narrowing. Mild degeneration change s of the knee with osteophyte formation of the tibial plateau and patella bilaterally. No joint effus ion is identified.. IMPRESSION: 1. No acute osseous pathology. 2. Mild degeneration changes of the hip and bilateral knees.
[2023-08-25 16:45] VITALS: BP 129/84; PULSE 90; TEMP 98.1
== END 2023-08-25 16:59 | disposition home or self-care (01) ==
LOC: EC 13:56
DX: S83.91XA Sprain of unspecified site of right knee, initial encounter (principal); M25.562 Pain in left knee; M25.561 Pain in right knee; F12.90 Cannabis use, unspecified, uncomplicated; W01.0XXA Fall on same level from slipping, tripping and stumbling without subsequent striking against object, initial encounter
CPT/HCPCS: 99283

== ENCOUNTER → 2024-01-19 | Outpatient (CLI) | payer MEDICARE ==
[2024-01-19 15:24] LABS: Basophils # (A) 0.03 X 10*3/uL (0.00-0.10); Basophils % (A) 0.4 %; Eosinophils # (A) 0.12 X 10*3/uL (0.04-0.35); Eosinophils % (A) 1.5 %; HCT 41.3 % (37.2-46.3); HGB 13.6 g/dL (12.0-15.0); Lymphocytes # (A) 2.71 X 10*3/uL (0.90-5.00); Lymphocytes % (A) 34.5 %; MCH 28.8 pg (27.0-32.0); MCHC 32.9 g/dL (32.0-37.0); MCV 87.3 FL (80.0-97.0); Mean Platelet Volume 10.8 FL (9.5-12.2); Monocytes # (A) 0.41 X 10*3/uL (0.20-1.00); Monocytes % (A) 5.2 %; NRBC Per 100 WBC 0 X 10*3/uL (0.00-0.01); Neutrophils # (A) 4.56 X 10*3/uL (1.80-7.70); Platelet Count 270 X 10*3/uL (140-440); RBC 4.73 X 10*6/uL (4.10-5.20); RDW 12.7 % (11.5-14.5); WBC 7.86 X 10*3/uL (4.50-10.00)
[2024-01-19 16:01] LABS: ALT 20 U/L (8-44); AST 18 U/L (13-35); Albumin 3.9 g/dL (3.8-4.9); Albumin/Globulin Ratio 1.56 Ratio (1.60-3.17); Alkaline Phosphatase 77 U/L (41-126); BUN/Creat Ratio 14.17 Ratio (12.00-20.00); Blood Urea Nitrogen 8.5 mg/dL (9.0-27.0); Calcium 8.9 mg/dL (8.7-10.3); Carbon Dioxide 26.3 mmol/L (21.6-31.8); Chloride 103 mmol/L (96-109); Chol/HDL Ratio 4.11 Ratio; Globulin 2.5 g/dL (1.6-3.3); Glucose 95 mg/dL (70-110); LDL Cholesterol,Calculated 91.4 mg/dL (0.0-131.0); Potassium 4.2 mmol/L (3.5-5.5); Sodium 138 mmol/L (135-145); T4, Free (Free Thyroxine) 0.88 ng/dL (0.80-1.80); Total Bilirubin 0.3 mg/dL (0.3-1.2); Total Protein 6.4 g/dL (6.2-8.2)
== END | disposition home or self-care (01) ==
LOC: LABWHC1 09:41
PROVIDERS: ATTEND Family Medicine
CPT/HCPCS: 36415; 80053; 80061; 82306; 83036; 84402; 84403; 84439; 84443; 85025

== ENCOUNTER 2024-05-04 17:23 | Emergency (ER) | payer MEDICARE, OTHER ==
--- NOTE | 2024-05-04 17:31 | ED ---
Lower Extremity Injury HPI - General Chief Complaint: Extremity Injury, Lower Stated Complaint: fall-left ankle Time Seen by Provider: 05/04/24 17:30 Source: patient, RN notes reviewed Mode of arrival: ambulatory Limitations: no limitations - History of Present Illness Initial Comments: 29-year-old female presenting to the emergency department for complaint of left ankle injury. She states that prior to arrival she was inside when she tripped over a pair of shoes in the house causing her left ankle to twist out from under her. She denies hitting her head or loss conscious the time the injury. Patient states that she has been having pain with ambulation since the injury. No other acute complaints at this time. - Related Data Previous Rx's Medication Instructions Recorded Naproxen Sodium 550 mg PO BID PRN #30 tablet 08/25/23 methocarbamoL [Robaxin-750] 1,500 mg PO TID PRN #30 tab 08/25/23 Allergies Allergy/AdvReac Type Severity Reaction Status Date / Time No Known Allergies Allergy Verified 05/04/24 17:28 Review of Systems ROS Statement: Those systems with pertinent positive or pertinent negative responses have been documented in the HPI. ROS Other: All systems not noted in ROS Statement are negative. Past Medical History Additional Past Medical History / Comment(s): PCOS History of Any Multi-Drug Resistant Organisms: None Reported Past Surgical History: Tonsillectomy Additional Past Surgical History / Comment(s): cyst removed 2017 Past Psychological History: Anxiety Smoking Status: Vaper Past Alcohol Use History: Rare Past Drug Use History: Marijuana General Exam Limitations: no limitations General appearance: alert, in no apparent distress Neck exam: Present: normal inspection. Absent: tenderness, meningismus, lymphadenopathy Respiratory exam: Present: normal lung sounds bilaterally. Absent: respiratory distress, wheezes, rales, rhonchi, stridor Cardiovascular Exam: Present: regular rate, normal rhythm, normal heart sounds. Absent: systolic murmur, diastolic murmur, rubs, gallop, clicks GI/Abdominal exam: Present: soft, normal bowel sounds. Absent: distended, tenderness, guarding, rebound, rigid Left Ankle exam: Present: tenderness, swelling, ecchymosis. Absent: deformity, dislocation, erythema Neurovascular tendon exam: Present: no vascular compromise. Absent: pulse deficit Gait: not tested/not observed Back exam: Present: normal inspection Course Vital Signs 05/04/24 17:24 Temperature 97.7 F Pulse Rate 79 Respiratory 20 Rate Blood Pressure 128/88 O2 Sat by Pulse 99 Oximetry Procedures - Orthopedic Splinting/Casting Injury #1 Side: left Lower Extremity Injury Location: short leg Lower Extremity Immobilizer: posterior splint, Jassi wrap, synthetic pre-padded splint Other Orthopedic Equipment: crutches Medical Decision Making - Medical Decision Making Was pt. sent in by a medical professional or institution (, PA, DYE BECK REEL OPERATOR, urgent care, hospital, or long-term...) When possible be specific @ -No Did you speak to anyone other than the patient for history (EMS, parent, family, police, friend...)? What history was obtained from this source @ -No Did you review nursing and triage notes (agree or disagree)? Why? @ -I reviewed and agree with nursing and triage notes Were old charts reviewed (outside hosp., previous admission, EMS record, old EKG, old radiological studies, urgent care reports/EKG's, long-term records)? Report findings @ -No old charts were reviewed Differential Diagnosis (chest pain, altered mental status, abdominal pain women, abdominal pain men, vaginal bleeding, weakness, fever, dyspnea, syncope, headache, dizziness, GI bleed, back pain, seizure, CVA, palpatations, mental health, musculoskeletal)? @ -Differential Musculoskeletal Muscular strain, contusion, ligament sprain, fracture, arthritis, septic arthritis, bursitis, cellulitis, muscle spasm, nerve compression, DVT, arterial occlusion, herpes zoster, electrolyte abnormality, tumor.... This is not meant to be in all inclusive list EKG interpreted by me (3pts min.). @ -None X-rays interpreted by me (1pt min.). @ -X-ray of the left ankle soft tissue swelling a small ossific density inferior to the lateral malleolus suspicious for acute avulsion fracture and questionable cortical step-off involving medial malleolus possible incomplete avulsion fracture. CT interpreted by me (1pt min.). @ -None done U/S interpreted by me (1pt. min.). @ -None done What testing was considered but not performed or refused? (CT, X-rays, U/S, labs)? Why? @ -None What meds were considered but not given or refused? Why? @ -None Did you discuss the management of the patient with other professionals (professionals i.e. [employer], PA, DYE BECK REEL OPERATOR, lab, RT, psych nurse, social services specialist, adobe maker, teacher, signals officer, heel caser)? Give summary @ -No Was smoking cessation discussed for >3mins.? @ -No Was critical care preformed (if so, how long)? @ -No Were there social determinants of health that impacted care today? How? (Homelessness, low income, unemployed, alcoholism, drug addiction, transportation, low edu. Level, literacy, decrease access to med. care, [facility], rehab)? @ -No Was there de-escalation of care discussed even if they declined (Discuss DNR or withdrawal of care, Hospice)? DNR status @ -No What co-morbidities impacted this encounter? (DM, HTN, Smoking, COPD, CAD, Cancer, CVA, ARF, Chemo, Hep., AIDS, mental health diagnosis, sleep apnea, morbid obesity)? @ -None Was patient admitted / discharged? Hospital course, mention meds given and route, prescriptions, significant lab abnormalities, going to OR and other pertinent info. @ -Discharge. 29-year-old female presenting with left ankle pain. Patient noted to have ecchymosis and edema of the left ankle over the lateral malleolus. She is provided with thiamine injection of Toradol for pain relief. X-ray remarkable for questionable incomplete avulsion fracture of the medial malleolus and lateral malleolus. Patient is placed in a posterior leg splint and provided with crutches and follow-up with family protection specialist. Supportive treatment discussed. Case discussed with Dr. Fermin Undiagnosed new problem with uncertain prognosis? @ -No Drug Therapy requiring intensive monitoring for toxicity (Heparin, Nitro, Insulin, Cardizem)? @ -No Were any procedures done? @ -orthopedic splinting Diagnosis/symptom? @ -Lateral malleolus fracture Acute, or Chronic, or Acute on Chronic? @ -acute Uncomplicated (without systemic symptoms) or Complicated (systemic symptoms)? @ -Uncomplicated Side effects of treatment? @ -No Exacerbation, Progression, or Severe Exacerbation? @ -No Poses a threat to life or bodily function? How? (Chest pain, [place], [place], pneumonia, PE, COPD, DKA, ARF, appy, cholecystitis, CVA, Diverticulitis, Homicidal, Suicidal, threat to staff... and all critical care pts) @ -No Disposition Clinical Impression: Avulsion fracture of ankle Disposition: HOME SELF-CARE Condition: Good Instructions (If sedation given, give patient instructions): Ankle Sprain (ED) Additional Instructions: Please return to the Emergency Department if symptoms worsen or any other concerns. Is patient prescribed a controlled substance at d/c from ED?: No Referrals: Ismael Pimentel DO [Primary Care Provider] - 1-2 days Mauricio Brothers DO [Doctor of Osteopathic Medicine] - 1-2 days Time of Disposition: 18:16
[2024-05-04] MEDS: KETOROLAC 15 MG/ML 1 ML VIAL IM STA (17:43)
--- NOTE | 2024-05-04 18:06 | XR ---
EXAMINATION TYPE: XR ankle complete LT, XR foot complete LT DATE OF EXAM: 05/04/2024 5:56 PM COMPARISON: None. CLINICAL INDICATION: Female, 29 years old with history of rolled ankle, ecchymosis, edema; [facility] TECHNIQUE: XR ankle complete LT, XR foot complete LT; ankle is imaged in frontal, lateral and obliqu e projections. FINDINGS: Small ossific density inferior to the lateral malleolus, possibly reflecting an acute avulsion fractu re. Additional mild cortical step-off along the medial malleolus is indeterminate for acute fracture. Talonavicular joint unremarkable. Talar dome is unremarkable. Enthesophyte formation along the planta r calcaneal surface near the Achilles tendon insertion site. No evidence of intrahepatic form body. N o acute fracture or dislocation in the left foot. IMPRESSION: 1. Left ankle soft tissue swelling and small ossific density inferior to the lateral malleolus suspi cious for an acute avulsion fracture. 2. Questionable cortical step-off involving the medial malleolus which could reflect an incomplete a vulsion fracture. [facility], , 05/04/2024 6:04 PM
[2024-05-04 19:03] VITALS: BP 136/82; PULSE 83; RESP 19; TEMP 98.3
== END 2024-05-04 18:55 | disposition home or self-care (01) ==
LOC: EC 17:23
DX: S82.62XA Displaced fracture of lateral malleolus of left fibula, initial encounter for closed fracture (principal); F17.290 Nicotine dependence, other tobacco product, uncomplicated; X50.1XXA Overexertion from prolonged static or awkward postures, initial encounter; Y92.009 Unspecified place in unspecified non-institutional (private) residence as the place of occurrence of the external cause
CPT/HCPCS: 73610; 73630; 99283; 96372; 29515; J1885